=== PATIENT | male | born 1960 | race African-American/Black ===

== ENCOUNTER 2019-04-23 15:54 | Emergency (ER) | payer OTHER, SELFPAY ==
[2019-04-23 16:01] VITALS: BP 162/77; PULSE 82; RESP 16; TEMP 36.8; O2SAT 97; BMI 38.2
--- NOTE | 2019-04-23 16:33 | PC.NURSE ---
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 no loc. no chest pain no sob
--- NOTE | 2019-04-23 16:43 | ED_ITS ---
HPI - General Adult General Chief complaint: Environmental Exposure Stated complaint: electrical shock at work Time Seen by Provider: 04/23/19 16:36 Source: patient Mode of arrival: Ambulatory Limitations: no limitations History of Present Illness HPI narrative: Patient is a 58-year-old male who works over the [employer]. Patient states that he touched the canopy of a aircraft and received shock. He tension with his bare right hand. Since even patient has had no symptoms. Is brought to the emergency department because this happened at work kidney need to be evaluated. Related Data Home Medications Medication Instructions Recorded Confirmed albuterol sulfate [ProAir HFA] 1 inh INHALATION PRN PRN 04/23/19 fluticasone propionate 1 spray INTRANASAL DIRECTED 04/23/19 04/23/19 loratadine 10 mg PO DAILY 04/23/19 04/23/19 simvastatin 20 mg PO DAILY 04/23/19 04/23/19 zolpidem 10 mg PO BEDTIME 04/23/19 04/23/19 Allergies Allergy/AdvReac Type Severity Reaction Status Date / Time No Known Drug Allergies Allergy Verified 04/23/19 16:08 Review of Systems Constitutional Constitutional: Denies fever(s) and Denies headache(s) Eyes Eyes: Denies change in vision ENT Ears, Nose, Mouth, and Throat: Denies vertigo, Denies dizziness and Denies headache(s) Cardiovascular Cardiovascular: Denies chest pain and Denies dyspnea Respiratory Respiratory: Denies cough and Denies dyspnea Gastrointestinal Gastrointestinal: Denies abdominal pain, Denies nausea and Denies vomiting Genitourinary Genitourinary: Denies dysuria Musculoskeletal Musculoskeletal: Denies myalgias and Denies arthralgias Integumentary/Breasts Skin/Breast: Denies lesions and Denies rash Neurologic Neurologic: Denies behavioral changes, Denies vertigo, Denies dizziness and Denies headache(s) Psychiatric Psychiatric: Denies behavioral changes Hematologic/Lymphatic Hematologic/Lymphatic: Denies easy bleeding and Denies easy bruising Patient History Medical History Hypertension (Acute) Social History Smoking Status: Former smoker Smoking Status: Former smoker alcohol intake frequency: 0-2 drinks per day Substance Use Type: does not use Exam Initial Vital Signs Initial Vital Signs: Vital Signs Temperature 98.3 F 04/23/19 16:01 Pulse Rate 82 04/23/19 16:01 Respiratory Rate 16 04/23/19 16:01 Blood Pressure 162/77 H 04/23/19 16:01 Pulse Oximetry 97 04/23/19 16:01 Const General: cooperative and comfortable Limitations: mental status not altered HENMT Head: normal to inspection and normocephalic Resp Effort & Inspection: normal respiratory effort Auscultation: clear to auscultation bilaterally Cardio Rate: regular rate Rhythm: regular rhythm GI Inspection: non-distended Palpation: soft Skin Lesions: no lesions Rashes: no rashes Neuro General: alert and awake Speech: speech normal Extrem General: normal to inspection and capillary refill normal Psych Appearance: grossly normal and well kempt Scores GCS [place] coma scale eye opening: Spontaneous [place] coma scale verbal response: Orientated [place] coma scale motor response: Obey commands [place] coma scale total score: 15 Course Orders Ordered: ED Orders 04/23/19 16:08 EKG-12 Lead Stat Vital Signs Vital signs: Vital Signs - 8 hr 04/23/19 16:01 04/23/19 16:59 Temperature 98.3 F Pulse Rate 82 78 Respiratory Rate 16 12 Blood Pressure 162/77 H 166/84 H Pulse Oximetry 97 97 Medical Decision Making ECG Data Attestation: I personally reviewed and interpreted this ECG as follows: Prior ECG tracings: not available for review Interpretation: Sinus rhythm Rate is 74 Normal axis Normal QRS Normal QTC No ST T wave changes MDM Narrative Medical decision making narrative: No symptoms and no objective findings of any residual effects from the shock that he sustained at work. On further workup for now. L and I paperwork completed. Patient was given return precautions and follow-up instructions. He expressed understanding and agreement. Discharge Plan Departure Patient Disposition: Home Clinical Impression: Electric shock Qualifiers: Encounter type: initial encounter Qualified Code(s): T75.4XXA - Electrocution, initial encounter Discharge Date/Time: 04/23/19 17:00 Activity Restrictions/Additional Instructions: You have no restrictions on your activities. Continue to take all of your medications as directed. Return to the emergency department for any new or worsening symptoms Prescriptions: No Action simvastatin 20 mg tablet 20 mg PO DAILY RF: 0 zolpidem 10 mg tablet 10 mg PO BEDTIME RF: 0 albuterol sulfate [ProAir HFA] 90 mcg/actuation HFA aerosol inhaler 1 inh INHALATION PRN PRN (Reason: Shortness Of Breath) RF: 0 fluticasone propionate 50 mcg/actuation spray,suspension 1 spray INTRANASAL DIRECTED RF: 0 loratadine 10 mg tablet 10 mg PO DAILY RF: 0 Stand Alone Forms: Work Release Note
[2019-04-23 16:59] VITALS: BP 166/84; PULSE 78; RESP 12; O2SAT 97
== END 2019-04-23 17:00 | disposition home or self-care (01) ==
PROVIDERS: Emergency Provider Emergency Medicine
DX: T75.4XXA Electrocution, initial encounter (principal); Y99.0 Civilian activity done for income or pay
CPT/HCPCS: 93005; 93010; 99282; 99283